=== PATIENT | male | born 1980 | race Caucasian/White ===

== ENCOUNTER 2017-09-15 10:01 | Inpatient (IN) | payer OTHER ==
[~2017-09-15] VITALS: Ht 180.3 cm; Wt 78.9 kg
[2017-09-15] VITALS (12 sets, daily range): BP systolic 93–125; BP diastolic 51–82
[~2017-09-15 10:01] MED LIST: AMITRIPTYLINE H10 MG ORAL
[2017-09-15] MEDS ORDERED: Vancomycin 1gm inj IVPB ONE (10:27)
[2017-09-15] MEDS ORDERED: Thrombin 5000 units TOPIC ONE (10:27)
[2017-09-15] MEDS ORDERED: Lacri-Lube Opth Oint 3.5gm ONE (10:27)
[2017-09-15] MEDS ORDERED: Bacitracin 50000 Units Vial ONE (10:28)
[2017-09-15] MEDS ORDERED: Bupivacaine 0.5% Inj 30 ml vial INJ ONE (10:28)
[2017-09-15] MEDS ORDERED: Lidocaine 1% 10mg/ml/Epi 0.005mg/ml 30ml vial INJ ONE (10:28)
[2017-09-15] MEDS ORDERED: CYCLOBENZAPRINE10 MG ORAL (10:49)
[2017-09-15] MEDS ORDERED: NAPROXEN250 M1 PO (10:49)
--- NOTE | 2017-09-15 11:20 | Anethesia Preoperative Eval ---
Anesthesia Pre-op PMH/ROS General Date of Evaluation: Sep 15, 2017 Anesthesiologist: Tony ASA Score: ASA 2 Mallampati Score Class I : Soft palate, uvula, fauces, pillars visible Class II: Soft palate, uvula, fauces visible Class III: Soft palate, base of uvula visible Class IV: Only hard plate visible Mallampati Classification: Class II Surgeon: Madi Diagnosis: Lumbar radiculopathy Surgical Procedure: L4-S1 microdecompression and microdiscectomy Anesthesia History: none Family History: no anesthesia problems Allergies: Coded Allergies: No Known Allergies (Unverified , 09/14/17) Medications: see eMAR Past Medical History Cardiovascular: Denies: HTN, CAD, [place], valve dz, arrhythmia, other Pulmonary: Denies: asthma, COPD, MARIA ANTON[place], other Gastrointestinal/Genitourinary: Denies: GERD, CRI, ESRD, other Neurologic/Psychiatric: Reports: depression/anxiety, other - migraines, Denies: dementia, CVA, TIA Endocrine: Denies: DM, hypothyroidism, steroids, other HEENT: Denies: cataract (L), cataract (R), glaucoma, [place] (L), [place] (R), other Hematology/Immune: Denies: anemia, DVT, bleeding disorder, other Musculoskeletal/Integumentary: Reports: OA, other - LBP, Denies: RA, DJD, DDD, edema PSxH Narrative: septoplasty, pituitary tumor excision Anesthesia Pre-op Phys. Exam Physician Exam Last Vital Signs Date Time Temp Pulse Resp B/P (MAP) Pulse Ox O2 Delivery O2 Flow Rate FiO2 09/15/17 10:41 98.3 62 20 103/75 100 Room Air Constitutional: NAD Cardiovascular: RRR Respiratory: CTA Airway Exam Mallampati Score: Class II MO: full ROM: full Teeth: intact Anesthesia Pre-op A/P Labs see chart Studies Pre-op Studies: EKG - sr Risk Assessment & Plan Assessment: ASA II Plan: GA Status Change Before Surgery: No Pre-Antibiotics Drug: Ancef 2g Given Within 1 Hr of Incision: Yes Time Given: 12:30 SALOME GARCIA M.D. Sep 15, 2017 11:20
--- NOTE | 2017-09-15 12:04 | Pre-Procedure Note/Attestation ---
Pre-Procedure Note/Attestation Complete Prior to Procedure Planned Procedure: left Procedure Narrative: Left L45 and L5S1 microdecompression and microdiscectomy Indications for Procedure Pre-Operative Diagnosis: lumbar radiculopathy and hnp Attestation I attest that I discussed the nature of the procedure; its benefits; risks and complications; and alternatives (and the risks and benefits of such alternatives ), prior to the procedure, with the patient (or the patient's legal representative personal service). I attest that, if there was a reasonable possibility of needing a blood transfusion, the patient (or the patient's legal representative personal service) was given the [facility] standardized written summary, pursuant to the Jorge Misha Blood Safety Act ([place] Health and Safety Code # 1645, as amended). I attest that I re-evaluated the patient just prior to the surgery and that there has been no change in the patient's H&P, except as documented below: TONYA ZEPEDA Sep 15, 2017 12:04
[2017-09-15] MEDS ORDERED: Metoclopramide 10mg/2ml Inj ONE (12:30)
[2017-09-15] MEDS ORDERED: Lidocaine 1% MPF 10mg/ml 5ml ONE (12:30)
[2017-09-15] MEDS ORDERED: NS Irrig 1000ml ONE (12:30)
[2017-09-15] MEDS ORDERED: fentaNYL 100 mcg/2 mL IV ONE (12:30)
[2017-09-15] MEDS ORDERED: Dexamethasone 4mg/ml vial ONE (12:30)
[2017-09-15] MEDS ORDERED: LR 1000ml ONE (12:30)
[2017-09-15] MEDS ORDERED: Propofol 1,000mg/ 100ml btl IV ONE (12:30)
[2017-09-15] MEDS ORDERED: Sterile Water Irrig 1000ml IRRIG ONE (12:30)
[2017-09-15] MEDS ORDERED: Midazolam 2mg/2ml Inj ONE (12:30)
[2017-09-15] MEDS ORDERED: Zemuron 50mg/5ml Inj IV ONE (12:30)
[2017-09-15] MEDS ORDERED: LR 1000ml 1,000 ML IVLG SCH (13:24)
--- NOTE | 2017-09-15 13:24 | Immediate Post-Op Evaluation ---
Immediate Post-Op Evalulation Immediate Post-Op Evalulation Procedure: L4-S1 microdecompression and microdiscectomy Date of Evaluation: Sep 15, 2017 Time of Evaluation: 14:43 IV Fluids: 1L Blood Products: 0 Estimated Blood Loss: 150 Urinary Output: 150 Blood Pressure Systolic: 93 Blood Pressure Diastolic: 51 Pulse Rate: 64 Respiratory Rate: 17 O2 Sat by Pulse Oximetry: 99 Temperature (Fahrenheit): 97.5 Pain Score (1-10): 0 Nausea: No Vomiting: No Complications 0 Patient Status: awake, reacts, patent, none Hydration Status: adequate Drug: Ancef 2g Given Within 1 Hr of Incision: Yes Time Given: 12:30 SALOME GARCIA M.D. Sep 15, 2017 13:24
[2017-09-15] MEDS ORDERED: DiphenhydrAMINE 50mg/ml Inj IVP PRN (13:30)
[2017-09-15] MEDS ORDERED: Midazolam 2mg/2ml Inj IVP PRN (13:30)
[2017-09-15] MEDS ORDERED: LORazepam Inj 2mg/ml 1ml IV PRN (13:30)
[2017-09-15] MEDS ORDERED: Metoclopramide 10mg/2ml Inj IVP PRN (13:30)
[2017-09-15] MEDS ORDERED: fentaNYL 100 mcg/2 mL IV PRN (13:30)
--- NOTE | 2017-09-15 14:05 | Diagnostic Imaging Report ---
Indication: PAIN, leg pain, intraoperative Technique: Intraoperative images Comparison: None Findings: Surgical tool projected posterior to the L5 vertebral body. Impression: Intraoperative imaging, as described
--- NOTE | 2017-09-15 14:41 | Brief Operative Note ---
Immediate Post Operative Note Operative Note Pre-op Diagnosis: lumbar radiculopathy and hnp Procedure: l l45 and l5S1 microdecompression and microdiscectomy Post-op Diagnosis: same as pre-op Findings: consistent w/pre-op dx studies Surgeon: armando Spray Dry Operator: satnam estrella Anesthesiologist: jw Anesthesia: general Specimen: none Complications: none Condition: stable Fluids: 800 cc Estimated Blood Loss: volume - 150 cc Drains: none Implant(s) used?: No TONYA ZEPEDA Sep 15, 2017 14:41
[2017-09-15] MEDS: Hydromorphone 0.5mg/0.5ml inj IVP PRN ×2 (14:56→15:39)
[2017-09-15] MEDS ORDERED: Norco 7.5mg/325mg tab ORAL PRN (17:30)
[2017-09-15] MEDS ORDERED: Naloxone 0.4mg/ml Inj IVP PRN (17:30)
[2017-09-15] MEDS ORDERED: HYDROmorphone 1mg/ml Carpuject SUBQ PRN (17:30)
[2017-09-15] MEDS ORDERED: HYDROmorphone 1mg/ml Carpuject IVP PRN (17:30)
[2017-09-15] MEDS: Docusate 100mg cap ORAL SCH (18:06)
[2017-09-15] MEDS: D5 1/2NS 1,000 ML IV SCH (18:07)
--- NOTE | 2017-09-15 21:00 | Operative Note - Dictated ---
DATE OF OPERATION: 09/15/2017 PREOPERATIVE DIAGNOSIS: L4-L5 and L5-S1 disk protrusion with stenosis and left lower extremity radiculopathy. POSTOPERATIVE DIAGNOSIS: L4-L5 and L5-S1 disk protrusion with stenosis and left lower extremity radiculopathy. PROCEDURE PERFORMED: 1. Left L4-L5 laminotomy, foraminotomy, medial facetectomy and microdiskectomy. 2. Left L5-S1 laminotomy, foraminotomy, medial facetectomy and microdiskectomy. 3. Intraoperative use of fluoroscopy. 4. Intraoperative use of microscope. SURGEON: Lyndon Barraza M.D. GYN: Alan Porras M.D. ANESTHESIA: General endotracheal anesthesia. ANESTHESIOLOGIST: Asuncion Ignacio M.D. FINDINGS: L4-L5 and L5-S1 disk protrusion, disk impingement, stenosis in the lateral recess and foramina. ESTIMATED BLOOD LOSS: 150 mL. INDICATION: This is a pleasant gentleman, who failed nonoperative treatment and was given the option for above procedure. The patient understood and consented for above procedure. The risks, alternatives and benefits were discussed with the patient to include, but not limited to, anesthesia complications including , medical complications including liver, kidney, cardiopulmonary deficits, bleeding, infection, dural tear, CSF leak, nerve root injury, pars flap fracture, instability, reherniation, and continued symptoms. OPERATION: The patient was brought in the operating room supine on a stretcher. Subsequently appropriate IV lines were placed and the surgical time-out was called. A 2 g of Ancef was administered. Anesthesia was induced and the patient was successfully intubated. Sequential compression devices were placed. The patient was gently turned over on the Vern frame table. All bony prominences were well padded and the abdomen was assured to lay freely. The L4-L5 and L5-S1 interspaces were positively identified with lateral fluoroscopy. At this point, the patient was prepped and draped in usual sterile fashion with alcohol, chlorhexidine scrub, ChloraPrep, Ioban draping. Myself and my psych assistant were prepped and gowned as well. At this point, a midline incision was carried out with the aid of an intraoperatively sterilely draped microscope. Subperiosteal dissection of the lamina carried out and a radiopaque marker was placed at the level of the pedicle. Lateral fluoroscopy identified the L5 pedicle and thus L4-L5 interspace as well as the L5-S1 interspace. The lean six sigma black belt retractors were set in place and attention was first diverted to the L5-S1 interspace. With a high-speed drill, straight and curved curette as well as #2 through # 5 Kerrison punches as well as a nerve hook, dental probe and Vandana probe, an intralumbar laminotomy, medial facetectomy, and excision of the ligamentum flavum and complete decompression of the foramina on the left side and the lateral recess entailed, there was lateral recess and foraminal stenosis for the traversing and exiting nerve at L5-S1 and at this point, hemostasis was achieved and #4 [place] probe as well as the nerve root retractor the neural elements were carefully retracted medially. A disk protrusion was found and with a #11 blade, an incision was made into the posterior annulus and with a Meyer instrument, Katharine curette, Peapod, forward angled pituitary as well as Vandana probe and dental probe, a diskectomy was carried out until all herniated and protruded disk material was removed and the floor of the canal became flat and impingement on the neural elements were no longer evident. Once this was completed, a triple antibiotic solution was used for disk space irrigation and all loose disk material was removed. At this point, a final exploration was done and then now attention was diverted to the L4-L5 level. With the same instrument, a medial facetectomy, intralumbar laminotomy, foraminotomy entailed and complete decompression of lateral recess and foramina was done at the L4-L5 level. With a Ganado retractor and a nerve root retractor, the neural elements were carefully retracted medially and the disk protrusion and herniation was found at L4-L5. A #11 blade was used to incise the posterior annulus and with Katharine curette, nerve hook, dental probe, and [place] probe, a diskectomy was carried out until all herniated material was removed and floor of the canal became flat and no further impingement of the neural elements remains. At this point, disk space irrigation was done and all loose disk material was removed and final inspection revealed complete decompression. Valsalva 40 mmHg was done and there was no CSF leak and now attention was diverted to closure. Hemostasis was achieved with Gelfoam, thrombin, FloSeal, and bipolar cautery and the dorsal lumbar fascia was closed with #1 Vicryl sutures in an interrupted watertight fashion. The subdermal and subcuticular layers were closed with 2-0 Vicryl sutures. A Dermabond and sterile dressing tape was placed. The patient was turned supine, was extubated in stable condition, and taken to the recovery room in stable condition. Lyndon Barraza M.D. DR: PITA JOB#: [id number] CC:
[2017-09-15] MEDS: ceFAZolin sod 1 GM in D5W 55 ML IV SCH (21:16)
[2017-09-16] MEDS: Norco 7.5mg/325mg tab ORAL PRN ×2 (02:45→08:31)
[2017-09-16 04:00] VITALS: BP 95/67
[2017-09-16] MEDS: ceFAZolin sod 1 GM in D5W 55 ML IV SCH ×2 (04:26→12:17)
[2017-09-16] MEDS: D5 1/2NS 1,000 ML IV SCH ×2 (04:29→14:28)
[2017-09-16 08:00] VITALS: BP 95/59
[2017-09-16] MEDS: Docusate 100mg cap ORAL SCH ×2 (08:30→17:24)
[2017-09-16 12:00] VITALS: BP 113/73
[2017-09-16 16:00] VITALS: BP 118/85
--- NOTE | 2017-09-16 16:03 | 48 Hour Post Anesthesia Eval ---
Post Anesthesia Evaluation Procedure: L4-S1 microdecompression and microdiscectomy Date of Evaluation: Sep 16, 2017 Time of Evaluation: 16:02 Blood Pressure Systolic: 128 0: 76 Pulse Rate: 74 Respiratory Rate: 20 Temperature (Fahrenheit): 97.6 O2 Sat by Pulse Oximetry: 98 Airway: patent Nausea: No Vomiting: No Pain Intensity: 2 Hydration Status: adequate Cardiopulmonary Status: stable Mental Status/LOC: patient returned to baseline Follow-up Care/Observations: n/a Post-Anesthesia Complications: none Follow-up care needed: N/A MERCEDES DEL RIO M.D. Sep 16, 2017 16:03
[2017-09-16 20:00] VITALS: BP 115/75
[2017-09-17 00:02] VITALS: BP 115/70
[2017-09-17 04:00] VITALS: BP 102/64
[2017-09-17] MEDS: Norco 5mg/325mg tab ORAL PRN ×2 (04:16→09:09)
[2017-09-17 08:35] VITALS: BP 116/73
[2017-09-17] MEDS: Docusate 100mg cap ORAL SCH (09:08)
[2017-09-17 11:53] VITALS: BP 111/69
--- NOTE | 2017-09-20 09:42 | Discharge Summary ---
Discharge Summary Hospital Course Date of Admission Sep 15, 2017 at 10:01 Date of Discharge Sep 17, 2017 at 14:36 Admitting Diagnosis lumbar radiculopathy and herniated nucleus pulposa Reason for Hospitalization: elective surgery HPI Juan Pablo Day is a 37 year old male who was admitted on Sep 15, 2017 at 10:01 for Lumbar Radiculopathy Procedures s/p 09/15/[address] Barraza 1. Left L4-L5 laminotomy, foraminotomy, medial facetectomy and microdiskectomy. 2. Left L5-S1 laminotomy, foraminotomy, medial facetectomy and microdiskectomy. 3. Intraoperative use of fluoroscopy. 4. Intraoperative use of microscope. Hospital Course s/p surgery course of recovery uneventful pain management addressed neurovascular intact dressing C/D/I ambulated tolerated diet voided cleared for dc home outpt fup with surgeon as advised DISCHARGE DIAGNOSIS L4-L5 and L5-S1 disk protrusion with stenosis and left lower extremity radiculopathy. s/p L45 and L5S1 microdecompression and microdiscectomy Discharge Medications Continued Medications: Amitriptyline Hcl* (Amitriptyline Hcl*) 10 Mg Tablet 10 MG ORAL BEDTIME, TAB Cyclobenzaprine Hcl* (Flexeril*) 10 Mg Tablet 10 MG ORAL BID, TAB Naproxen (Naproxen) 250 Mg Tablet 250 MG PO DA, TAB Discharge Condition Upon Discharge: stable Discharge Disposition Patient was discharged to Home (01) Discharge Diagnoses: Discharge Instructions Discharge Instructions Special Instructions I have been assigned to complete a D/C Summary on this account. I was not involved in the patient management Gini Covington NP ([place]) Sep 20, 2017 09:42
== END 2017-09-17 14:36 | disposition home or self-care (01) | DRG 520 ==
LOC: SDSOVERFLO 10:01 → 3E 12:06
PROC: 0SB20ZZ Excision of Lumbar Vertebral Disc, Open Approach (ICD-10-PCS; principal; 2017-09-15 12:00)
PROC: 01NB0ZZ Release Lumbar Nerve, Open Approach (ICD-10-PCS; principal; 2017-09-15 12:00)
DX: M51.16 Intervertebral disc disorders with radiculopathy, lumbar region (principal); F17.200 Nicotine dependence, unspecified, uncomplicated; M48.061 Spinal stenosis, lumbar region without neurogenic claudication; F43.10 Post-traumatic stress disorder, unspecified
CPT/HCPCS: 36415; 72020; 76001; 86850; 86900; 86901; 87081; 94003; 94150; 94760; J2250; J2405; J2765